=== PATIENT | female | born 1990 | race African-American/Black ===

== ENCOUNTER 2016-07-30 11:44 | Emergency (ER) | payer OTHER ==
[~2016-07-30] VITALS: Ht 172.7 cm; Wt 86.2 kg
[2016-07-30] MEDS ORDERED: IBUPROFEN 800800 M1 PO (13:58)
[2016-07-30] MEDS ORDERED: FLEXERIL PO (13:58)
[2016-07-30 14:04] VITALS: BP 103/71
== END 2016-07-30 13:59 | disposition home or self-care (01) ==
LOC: ER 11:44
DX: M62.830 Muscle spasm of back (principal); J45.909 Unspecified asthma, uncomplicated

== ENCOUNTER 2016-09-13 19:49 | Emergency (ER) | payer OTHER ==
[~2016-09-13] VITALS: Ht 172.7 cm; Wt 83.9 kg
[~2016-09-13 19:49] MED LIST: FLEXERIL PO; IBUPROFEN 800800 M1 PO
[2016-09-13] MEDS ORDERED: IBUPROFEN 600600 M1 PO (20:34)
[2016-09-13] MEDS ORDERED: TIZANIDINE HCL4 MG PO (20:34)
[2016-09-13 21:29] VITALS: BP 126/75
[2016-09-16] MEDS ORDERED: TRAMADOL 50 MG50 MG PO (01:35)
[2016-09-16] MEDS ORDERED: ROBAXIN500 MG PO (01:35)
== END 2016-09-13 21:30 | disposition home or self-care (01) ==
LOC: ER 19:49
DX: S29.012A Strain of muscle and tendon of back wall of thorax, initial encounter (principal); J45.909 Unspecified asthma, uncomplicated; X58.XXXA Exposure to other specified factors, initial encounter; Y93.89 Activity, other specified; Y92.89 Other specified places as the place of occurrence of the external cause; Y99.0 Civilian activity done for income or pay

== ENCOUNTER 2017-03-14 22:24 | Emergency (ER) | payer OTHER ==
[~2017-03-14] VITALS: Ht 172.7 cm; Wt 88.5 kg
[~2017-03-14 22:24] MED LIST changes: +IBUPROFEN 600600 M1 PO; +ROBAXIN500 MG PO; +TIZANIDINE HCL4 MG PO; +TRAMADOL 50 MG50 MG PO
[2017-03-14] MEDS ORDERED: TRIPLE ANTIBIOT28 G2 TOP (23:08)
[2017-03-14] MEDS ORDERED: NORCO 5-325 TA1 EACH PO (23:08)
== END 2017-03-14 23:30 | disposition home or self-care (01) ==
LOC: ER 22:24
DX: T22.211A Burn of second degree of right forearm, initial encounter (principal); J45.909 Unspecified asthma, uncomplicated; M54.9 Dorsalgia, unspecified; G89.29 Other chronic pain; X58.XXXA Exposure to other specified factors, initial encounter